=== PATIENT | male | born 1950 | race Caucasian/White ===

== ENCOUNTER 2017-06-29 18:23 | Inpatient (IN) | payer OTHER ==
[2017-06-29 23:04] LABS: ADD MAN DIFF? NO
[2017-06-29 23:06] LABS: BASOPHIL # 0.1 10^3/ul (0.0-0.1); BASOPHILS % 0.7 % (0.0-2.0); EOSINOPHILS # 0.2 10^3/ul (0.0-0.5); EOSINOPHILS % 1.1 % (0.0-7.0); HEMATOCRIT 32.9 % (42.0-52.0); HEMOGLOBIN 11.2 g/dl (14.0-18.0); LYMPHOCYTES # 1.5 10^3/ul (0.8-2.9); LYMPHOCYTES % 11.3 % (15.0-51.0); MEAN CORPUSCULAR HEMOGLOBIN 32.8 pg (29.0-33.0); MEAN CORPUSCULAR VOLUME 96.5 fl (82.0-101.0); MEAN PLATELET VOLUME 11.8 fl (7.4-10.4); MONOCYTE # 1.2 10^3/ul (0.3-0.9); MONOCYTES % 8.9 % (0.0-11.0); NEUTROPHIL # 10.5 10^3/ul (1.6-7.5); PLATELET COUNT 157 10^3/UL (140-415); RED BLOOD COUNT 3.41 10^6/ul (4.70-6.10); RED CELL DISTRIBUTION WIDTH 12.7 % (11.5-14.5)
[2017-06-29 23:06] LABS: WHITE BLOOD COUNT 13.7 10^3/ul (4.8-10.8)
[2017-06-29 23:09] LABS: INR 1.09; PROTIME 14.3 Sec (11.9-14.9); PT RATIO 1.1
[2017-06-29 23:10] LABS: PARTIAL THROMBOPLASTIN TIME 33.8 Sec (25.0-35.0)
[2017-06-29 23:13] LABS: ALANINE AMINOTRANSFERASE 45 IU/L (13-69); ALBUMIN 3.7 g/dl (3.3-4.9); ALBUMIN/GLOBULIN RATIO 0.94; ALKALINE PHOSPHATASE 249 IU/L (42-121); ANION GAP 21 (8-16); ASPARTATE AMINO TRANSFERASE 30 IU/L (15-46); BLOOD UREA NITROGEN 50 mg/dl (7-20); CALCIUM 9.2 mg/dl (8.4-10.2); CARBON DIOXIDE 32 mmol/L (21-31); CHLORIDE 88 mmol/L (97-110); CREATININE 7.77 mg/dl (0.61-1.24); POTASSIUM 5.7 mmol/L (3.5-5.1); SODIUM 135 mmol/L (135-144); TOTAL PROTEIN 7.6 g/dl (6.1-8.1)
[2017-06-29 23:15] LABS: GLUCOSE 540 mg/dl (70-220)
[2017-06-29 23:26] LABS: LACTIC ACID 1.4 mmol/L (0.5-2.0)
[2017-06-29] MEDS: INSULIN LISPRO 100 UNIT/ML VIAL SC (23:47)
[2017-06-30] MEDS ORDERED: INSULIN REGULAR, HUMAN 100 UNIT/1 ML 3ML VIAL IV (00:13)
[2017-06-30 00:29] LABS: ERYTHROCYTE SEDIMENTATION RATE 120 mm/Hr (0-20)
[2017-06-30] MEDS: ALBUTEROL 0.5% (NEB) 2.5 MG/0.5 ML AMP INH (00:34)
[2017-06-30] MEDS: PIPER-TAZO 2.25 GM (PMX) 50 ML IVPB ×2 (00:53→09:36)
[2017-06-30] MEDS: NA POLYST SULFON 15 GM/60 ML BTL PO (00:54)
[2017-06-30 01:06] LABS: LACTIC ACID 1.4 mmol/L (0.5-2.0)
[2017-06-30] MEDS ORDERED: DIPHENHYDRAMINE 25 MG CAP PO (01:30)
[2017-06-30] MEDS ORDERED: NACL 0.9% 3 ML SYG IV (01:30)
[2017-06-30] MEDS: VANCOMYCIN 1 GM (PMX) 250 ML IVPB (01:40)
[2017-06-30] MEDS: SOD CHLORIDE 0.9% 250 ML IV (02:00)
[2017-06-30] MEDS ORDERED: GLUCOSE GEL 15 GRAM TUBE PO ×2 (02:00)
[2017-06-30] MEDS ORDERED: GLUCOSE GEL 15 GRAM TUBE BUCCAL (02:00)
[2017-06-30] MEDS ORDERED: GLUCAGON 1 MG INJ IM (02:00)
[2017-06-30] MEDS ORDERED: ACCU-CHEK XX (02:00)
[2017-06-30] MEDS ORDERED: DEXTROSE 50% 50 ML SYRINGE IV ×2 (02:00)
[2017-06-30] MEDS ORDERED: INSULIN ASPART [NOVOLOG] 3 ML PEN SC (05:00)
[2017-06-30] MEDS ORDERED: VANCOMYCIN IV PER PHARMACY XX (05:30)
[2017-06-30] MEDS: ACCU-CHEK XX (05:30)
[2017-06-30] MEDS: VANCOMYCIN 1 GM in NS 250 ML IVPB (07:00)
[2017-06-30 07:10] LABS: ADD MAN DIFF? NO
[2017-06-30 07:53] LABS: ALANINE AMINOTRANSFERASE 49 IU/L (13-69); ALBUMIN 3.6 g/dl (3.3-4.9); ALBUMIN/GLOBULIN RATIO 0.92; ALKALINE PHOSPHATASE 189 IU/L (42-121); ANION GAP 19 (8-16); ASPARTATE AMINO TRANSFERASE 23 IU/L (15-46); BILIRUBIN,INDIRECT 0.1 mg/dl (0-1.1); BILIRUBIN,TOTAL 0.1 mg/dl (0.2-1.3); BLOOD UREA NITROGEN 54 mg/dl (7-20); CARBON DIOXIDE 29 mmol/L (21-31); CHLORIDE 95 mmol/L (97-110); CHOL/HDL RATIO 5.1 RATIO; CHOLESTEROL 135 mg/dl (100-200); CREATININE 8.32 mg/dl (0.61-1.24); GLUCOSE 157 mg/dl (70-220); HDL CHOLESTEROL 26 mg/dl (30-78); LDL CHOLESTEROL,CALCULATED 75 mg/dl; MAGNESIUM 2.5 mg/dl (1.7-2.5); POTASSIUM 4.1 mmol/L (3.5-5.1); SODIUM 139 mmol/L (135-144); TOTAL PROTEIN 7.5 g/dl (6.1-8.1); TRIGLYCERIDES 169 mg/dl (0-149)
[2017-06-30 07:56] LABS: LACTIC ACID 1.1 mmol/L (0.5-2.0)
[2017-06-30] MEDS: INSULIN ASPART [NOVOLOG] 3 ML PEN SC ×5 (08:00→20:34)
[2017-06-30 08:01] LABS: WHITE BLOOD COUNT 11.1 10^3/ul (4.8-10.8)
[2017-06-30 08:01] LABS: BASOPHIL # 0.1 10^3/ul (0.0-0.1); BASOPHILS % 0.6 % (0.0-2.0); EOSINOPHILS # 0.3 10^3/ul (0.0-0.5); EOSINOPHILS % 2.4 % (0.0-7.0); HEMATOCRIT 31.6 % (42.0-52.0); HEMOGLOBIN 10.7 g/dl (14.0-18.0); LYMPHOCYTES # 1.7 10^3/ul (0.8-2.9); LYMPHOCYTES % 15.2 % (15.0-51.0); MEAN CORPUSCULAR HEMOGLOBIN 32.4 pg (29.0-33.0); MEAN CORPUSCULAR HGB CONC 33.9 g/dl (32.0-37.0); MEAN CORPUSCULAR VOLUME 95.8 fl (82.0-101.0); MEAN PLATELET VOLUME 11.3 fl (7.4-10.4); MONOCYTE # 1.1 10^3/ul (0.3-0.9); MONOCYTES % 9.5 % (0.0-11.0); NEUTROPHIL # 7.8 10^3/ul (1.6-7.5); NEUTROPHILS % 70.9 % (39.0-77.0); PLATELET COUNT 162 10^3/UL (140-415); RED CELL DISTRIBUTION WIDTH 12.7 % (11.5-14.5)
[2017-06-30 08:58] LABS: THYROID STIMULATING HORMONE 0.924 MIU/L (0.465-4.680)
[2017-06-30] MEDS: MULTIVIT/CA CARB/B CMPLX/FA TAB PO (09:34)
[2017-06-30] MEDS: PANTOPRAZOLE (EC) 40 MG TAB PO (09:34)
[2017-06-30] MEDS: ASPIRIN (EC) 81 MG TAB PO (09:35)
[2017-06-30] MEDS: CALCIUM ACETATE 667 MG CAP PO ×3 (09:35→17:56)
[2017-06-30 10:04] LABS: HEMOGLOBIN A1C 8.8 % (0-5.9)
[2017-06-30] MEDS: INSULIN GLARGINE [LANtus] 3 ML PEN SC (20:33)
[2017-06-30] MEDS: ATORVASTATIN 10 MG TAB PO (20:35)
[2017-06-30] MEDS: SILVER SULFADIAZINE 1% 400 GM CR TOP (21:00)
[2017-07-01] MEDS: SODIUM HYPOCHLORITE 1/40% 1L IRRIG IRR ×3 (00:28→22:06)
[2017-07-01] MEDS: SILVER SULFADIAZINE 1% 400 GM CR TOP ×2 (00:29→21:00)
[2017-07-01] MEDS: morphine 2 MG INJ IV ×2 (01:44→10:30)
[2017-07-01] MEDS: ACCU-CHEK XX (01:52)
[2017-07-01 06:52] LABS: ANION GAP 17 (8-16); BLOOD UREA NITROGEN 51 mg/dl (7-20); CALCIUM 8.8 mg/dl (8.4-10.2); CARBON DIOXIDE 31 mmol/L (21-31); CHLORIDE 95 mmol/L (97-110); CREATININE 7.83 mg/dl (0.61-1.24); GLUCOSE 171 mg/dl (70-220); POTASSIUM 4.3 mmol/L (3.5-5.1); SODIUM 139 mmol/L (135-144)
[2017-07-01] MEDS: INSULIN ASPART [NOVOLOG] 3 ML PEN SC ×7 (08:00→21:00)
[2017-07-01] MEDS: PANTOPRAZOLE (EC) 40 MG TAB PO (08:22)
[2017-07-01] MEDS: CALCIUM ACETATE 667 MG CAP PO ×3 (08:22→17:08)
[2017-07-01] MEDS: ASPIRIN (EC) 81 MG TAB PO (08:26)
[2017-07-01] MEDS: MULTIVIT/CA CARB/B CMPLX/FA TAB PO (08:27)
[2017-07-01] MEDS: LOSARTAN 25 MG TAB PO (08:27)
[2017-07-01] MEDS ORDERED: AMIKACIN IV PER PHARMACY XX (11:00)
[2017-07-01] MEDS: AMIKACIN 600 MG in DEXTROSE 5% 100 ML IVPB (12:40)
[2017-07-01] MEDS ORDERED: INSULIN GLARGINE [LANtus] 3 ML PEN SC (21:00)
[2017-07-01] MEDS: INSULIN GLARGINE [LANtus] 3 ML PEN SC (21:47)
[2017-07-01] MEDS: ATORVASTATIN 10 MG TAB PO (21:48)
[2017-07-02] MEDS: ACCU-CHEK XX (02:00)
[2017-07-02] MEDS: morphine 2 MG INJ IV (06:56)
[2017-07-02] MEDS: ASPIRIN (EC) 81 MG TAB PO (08:45)
[2017-07-02] MEDS: PANTOPRAZOLE (EC) 40 MG TAB PO (08:45)
[2017-07-02] MEDS: MULTIVIT/CA CARB/B CMPLX/FA TAB PO (08:46)
[2017-07-02] MEDS: CALCIUM ACETATE 667 MG CAP PO ×3 (08:46→17:09)
[2017-07-02] MEDS: INFLUENZA VIRUS VACCINE 0.5 ML (DISPENSING) IM* (08:50)
[2017-07-02] MEDS: INSULIN ASPART [NOVOLOG] 3 ML PEN SC ×7 (08:54→20:50)
[2017-07-02] MEDS: LOSARTAN 25 MG TAB PO (09:00)
[2017-07-02] MEDS: SODIUM HYPOCHLORITE 1/40% 1L IRRIG IRR ×2 (14:00→20:54)
[2017-07-02] MEDS: SILVER SULFADIAZINE 1% 400 GM CR TOP ×2 (14:00→20:54)
[2017-07-02] MEDS ORDERED: VANCOMYCIN IV PER PHARMACY XX (14:30)
[2017-07-02] MEDS ORDERED: VANCOMYCIN 1 GM in NS 250 ML IVPB (17:00)
[2017-07-02] MEDS: VANCOMYCIN 1 GM in NS 250 ML IVPB (17:09)
[2017-07-02] MEDS ORDERED: CEFAZOLIN 2 GM/50 ML (PMX) 50 ML IVPB (19:00)
[2017-07-02] MEDS: POLYETHYLENE GLYCOL 17 GM PACKET PO (20:47)
[2017-07-02] MEDS: INSULIN GLARGINE [LANtus] 3 ML PEN SC (20:51)
[2017-07-02] MEDS: DOCUSATE SODIUM 100 MG CAP PO (20:53)
[2017-07-02] MEDS: ATORVASTATIN 10 MG TAB PO (20:53)
[2017-07-02] MEDS: KETOROLAC 15 MG INJ IV (22:01)
[2017-07-02] MEDS: AMIKACIN 400 MG in DEXTROSE 5% 100 ML IVPB (22:02)
[2017-07-03] MEDS: ACCU-CHEK XX (02:00)
[2017-07-03 06:03] LABS: ADD MAN DIFF? NO
[2017-07-03 06:07] LABS: BASOPHIL # 0.1 10^3/ul (0.0-0.1); BASOPHILS % 0.6 % (0.0-2.0); EOSINOPHILS # 0.3 10^3/ul (0.0-0.5); EOSINOPHILS % 2.2 % (0.0-7.0); HEMATOCRIT 32.3 % (42.0-52.0); HEMOGLOBIN 10.8 g/dl (14.0-18.0); LYMPHOCYTES # 1.8 10^3/ul (0.8-2.9); LYMPHOCYTES % 13.8 % (15.0-51.0); MEAN CORPUSCULAR HEMOGLOBIN 32.2 pg (29.0-33.0); MEAN CORPUSCULAR HGB CONC 33.4 g/dl (32.0-37.0); MEAN CORPUSCULAR VOLUME 96.4 fl (82.0-101.0); MEAN PLATELET VOLUME 11.1 fl (7.4-10.4); MONOCYTE # 0.9 10^3/ul (0.3-0.9); MONOCYTES % 6.8 % (0.0-11.0); NEUTROPHIL # 9.8 10^3/ul (1.6-7.5); NEUTROPHILS % 75.1 % (39.0-77.0); PLATELET COUNT 185 10^3/UL (140-415); RED BLOOD COUNT 3.35 10^6/ul (4.70-6.10); RED CELL DISTRIBUTION WIDTH 12.3 % (11.5-14.5)
[2017-07-03 06:24] LABS: INR 1.16; PT RATIO 1.2
[2017-07-03 06:25] LABS: PARTIAL THROMBOPLASTIN TIME 40.7 Sec (25.0-35.0)
[2017-07-03 07:00] LABS: ALANINE AMINOTRANSFERASE 35 IU/L (13-69); ALBUMIN 3.6 g/dl (3.3-4.9); ALBUMIN/GLOBULIN RATIO 0.97; ALKALINE PHOSPHATASE 184 IU/L (42-121); ANION GAP 22 (8-16); ASPARTATE AMINO TRANSFERASE 20 IU/L (15-46); BILIRUBIN,INDIRECT 0.1 mg/dl (0-1.1); BILIRUBIN,TOTAL 0.1 mg/dl (0.2-1.3); BLOOD UREA NITROGEN 60 mg/dl (7-20); CALCIUM 8.3 mg/dl (8.4-10.2); CARBON DIOXIDE 27 mmol/L (21-31); CHLORIDE 94 mmol/L (97-110); CREATININE 8.92 mg/dl (0.61-1.24); GLUCOSE 137 mg/dl (70-220); POTASSIUM 4.5 mmol/L (3.5-5.1); SODIUM 138 mmol/L (135-144); TOTAL PROTEIN 7.3 g/dl (6.1-8.1)
[2017-07-03] MEDS: INSULIN ASPART [NOVOLOG] 3 ML PEN SC ×7 (07:52→20:04)
[2017-07-03] MEDS: ASPIRIN (EC) 81 MG TAB PO (08:34)
[2017-07-03] MEDS: POLYETHYLENE GLYCOL 17 GM PACKET PO (08:34)
[2017-07-03] MEDS: MULTIVIT/CA CARB/B CMPLX/FA TAB PO (08:36)
[2017-07-03] MEDS: PANTOPRAZOLE (EC) 40 MG TAB PO (08:36)
[2017-07-03] MEDS: CALCIUM ACETATE 667 MG CAP PO ×3 (08:36→17:21)
[2017-07-03] MEDS: DOCUSATE SODIUM 100 MG CAP PO ×2 (08:36→20:03)
[2017-07-03] MEDS: LOSARTAN 25 MG TAB PO (08:37)
[2017-07-03] MEDS: SODIUM HYPOCHLORITE 1/40% 1L IRRIG IRR ×2 (08:40→20:02)
[2017-07-03] MEDS: SILVER SULFADIAZINE 1% 400 GM CR TOP ×2 (08:41→20:04)
[2017-07-03] MEDS: morphine 2 MG INJ IV (11:02)
[2017-07-03] MEDS ORDERED: GENTAMICIN IV PER PHARMACY XX (13:00)
[2017-07-03] MEDS: LEVOFLOXACIN 250 MG TAB PO (13:42)
[2017-07-03] MEDS: GENTAMICIN 160 MG in DEXTROSE 5% 100 ML IVPB (15:02)
[2017-07-03] MEDS: ATORVASTATIN 10 MG TAB PO (20:04)
[2017-07-03] MEDS: INSULIN GLARGINE [LANtus] 3 ML PEN SC (20:07)
[2017-07-04] MEDS: ACCU-CHEK XX (02:04)
[2017-07-04] MEDS: PANTOPRAZOLE (EC) 40 MG TAB PO (07:30)
[2017-07-04] MEDS: INSULIN ASPART [NOVOLOG] 3 ML PEN SC ×7 (07:35→21:00)
[2017-07-04] MEDS: CALCIUM ACETATE 667 MG CAP PO ×3 (07:35→17:13)
[2017-07-04] MEDS: DOCUSATE SODIUM 100 MG CAP PO ×2 (08:48→21:03)
[2017-07-04] MEDS: LOSARTAN 25 MG TAB PO (08:48)
[2017-07-04] MEDS: SILVER SULFADIAZINE 1% 400 GM CR TOP ×2 (08:49→21:00)
[2017-07-04] MEDS: ASPIRIN (EC) 81 MG TAB PO (08:49)
[2017-07-04] MEDS: MULTIVIT/CA CARB/B CMPLX/FA TAB PO (08:49)
[2017-07-04] MEDS: SODIUM HYPOCHLORITE 1/40% 1L IRRIG IRR ×2 (08:49→21:00)
[2017-07-04] MEDS: POLYETHYLENE GLYCOL 17 GM PACKET PO (08:49)
[2017-07-04] MEDS: morphine 2 MG INJ IV (12:48)
[2017-07-04] MEDS: GENTAMICIN 80 MG/NS (PMX) 50 ML IVPB (15:54)
[2017-07-04] MEDS: EPOETIN 10000 UNITS/1 ML INJ (ESRD) SC (17:24)
[2017-07-04] MEDS: INSULIN GLARGINE [LANtus] 3 ML PEN SC (21:00)
[2017-07-04] MEDS: ATORVASTATIN 10 MG TAB PO (21:03)
[2017-07-05] MEDS: ACCU-CHEK XX (01:55)
[2017-07-05 05:34] LABS: ADD MAN DIFF? NO
[2017-07-05 05:47] LABS: BASOPHIL # 0.1 10^3/ul (0.0-0.1); BASOPHILS % 0.6 % (0.0-2.0); EOSINOPHILS # 0.2 10^3/ul (0.0-0.5); EOSINOPHILS % 1.5 % (0.0-7.0); HEMATOCRIT 29.3 % (42.0-52.0); HEMOGLOBIN 9.7 g/dl (14.0-18.0); LYMPHOCYTES # 1.4 10^3/ul (0.8-2.9); LYMPHOCYTES % 12.4 % (15.0-51.0); MEAN CORPUSCULAR HEMOGLOBIN 31.9 pg (29.0-33.0); MEAN CORPUSCULAR HGB CONC 33.1 g/dl (32.0-37.0); MEAN CORPUSCULAR VOLUME 96.4 fl (82.0-101.0); MEAN PLATELET VOLUME 11.3 fl (7.4-10.4); MONOCYTES % 8.2 % (0.0-11.0); NEUTROPHIL # 8.9 10^3/ul (1.6-7.5); NEUTROPHILS % 76.4 % (39.0-77.0); PLATELET COUNT 218 10^3/UL (140-415); RED BLOOD COUNT 3.04 10^6/ul (4.70-6.10); RED CELL DISTRIBUTION WIDTH 12.3 % (11.5-14.5)
[2017-07-05 05:47] LABS: WHITE BLOOD COUNT 11.6 10^3/ul (4.8-10.8)
[2017-07-05 06:08] LABS: ANION GAP 20 (8-16); BLOOD UREA NITROGEN 62 mg/dl (7-20); CALCIUM 8.7 mg/dl (8.4-10.2); CARBON DIOXIDE 29 mmol/L (21-31); CHLORIDE 97 mmol/L (97-110); GLUCOSE 154 mg/dl (70-220); MAGNESIUM 2.5 mg/dl (1.7-2.5); PHOSPHORUS 7.5 mg/dl (2.5-4.9); POTASSIUM 5.1 mmol/L (3.5-5.1); SODIUM 141 mmol/L (135-144)
[2017-07-05 06:12] LABS: VANCOMYCIN,RANDOM 17.3 ug/ml
[2017-07-05] MEDS: INSULIN ASPART [NOVOLOG] 3 ML PEN SC ×7 (08:00→21:00)
[2017-07-05] MEDS: SODIUM HYPOCHLORITE 1/40% 1L IRRIG IRR ×2 (08:17→20:51)
[2017-07-05] MEDS: SILVER SULFADIAZINE 1% 400 GM CR TOP ×2 (08:17→20:52)
[2017-07-05] MEDS: POLYETHYLENE GLYCOL 17 GM PACKET PO (08:19)
[2017-07-05] MEDS: ASPIRIN (EC) 81 MG TAB PO (08:19)
[2017-07-05] MEDS: MULTIVIT/CA CARB/B CMPLX/FA TAB PO (08:19)
[2017-07-05] MEDS: DOCUSATE SODIUM 100 MG CAP PO ×2 (08:19→21:06)
[2017-07-05] MEDS: CALCIUM ACETATE 667 MG CAP PO ×3 (08:19→17:20)
[2017-07-05] MEDS: PANTOPRAZOLE (EC) 40 MG TAB PO (08:19)
[2017-07-05] MEDS: LOSARTAN 25 MG TAB PO (08:20)
[2017-07-05] MEDS: LEVOFLOXACIN 250 MG TAB PO (12:05)
[2017-07-05] MEDS: SEVELAMER 800 MG TAB PO ×2 (12:05→17:20)
[2017-07-05] MEDS: morphine 2 MG INJ IV (12:46)
[2017-07-05] MEDS: VANCOMYCIN 750 MG in DEXTROSE 5% 150 ML IVPB (21:05)
[2017-07-05] MEDS: ATORVASTATIN 10 MG TAB PO (21:06)
[2017-07-05] MEDS: INSULIN GLARGINE [LANtus] 3 ML PEN SC (21:10)
[2017-07-06] MEDS: ACCU-CHEK XX (02:00)
[2017-07-06] MEDS: PANTOPRAZOLE (EC) 40 MG TAB PO (06:15)
[2017-07-06 07:24] LABS: ADD MAN DIFF? NO
[2017-07-06 07:28] LABS: WHITE BLOOD COUNT 12.4 10^3/ul (4.8-10.8)
[2017-07-06 07:28] LABS: BASOPHILS % 0.3 % (0.0-2.0); EOSINOPHILS # 0.2 10^3/ul (0.0-0.5); EOSINOPHILS % 1.5 % (0.0-7.0); HEMATOCRIT 27.2 % (42.0-52.0); HEMOGLOBIN 9.2 g/dl (14.0-18.0); LYMPHOCYTES # 1.8 10^3/ul (0.8-2.9); LYMPHOCYTES % 14.1 % (15.0-51.0); MEAN CORPUSCULAR HEMOGLOBIN 32.5 pg (29.0-33.0); MEAN CORPUSCULAR HGB CONC 33.8 g/dl (32.0-37.0); MEAN CORPUSCULAR VOLUME 96.1 fl (82.0-101.0); MEAN PLATELET VOLUME 11.1 fl (7.4-10.4); MONOCYTE # 0.8 10^3/ul (0.3-0.9); MONOCYTES % 6.5 % (0.0-11.0); NEUTROPHIL # 9.5 10^3/ul (1.6-7.5); NEUTROPHILS % 76.6 % (39.0-77.0); PLATELET COUNT 224 10^3/UL (140-415); RED BLOOD COUNT 2.83 10^6/ul (4.70-6.10); RED CELL DISTRIBUTION WIDTH 12.3 % (11.5-14.5)
[2017-07-06 07:53] LABS: ANION GAP 23 (8-16); BLOOD UREA NITROGEN 85 mg/dl (7-20); CALCIUM 8.1 mg/dl (8.4-10.2); CARBON DIOXIDE 24 mmol/L (21-31); CHLORIDE 95 mmol/L (97-110); CREATININE 11.73 mg/dl (0.61-1.24); GLUCOSE 156 mg/dl (70-220); MAGNESIUM 2.5 mg/dl (1.7-2.5); PHOSPHORUS 7.5 mg/dl (2.5-4.9); POTASSIUM 5.4 mmol/L (3.5-5.1); SODIUM 137 mmol/L (135-144)
[2017-07-06] MEDS: CALCIUM ACETATE 667 MG CAP PO ×3 (08:41→17:38)
[2017-07-06] MEDS: LOSARTAN 25 MG TAB PO (08:42)
[2017-07-06] MEDS: SODIUM HYPOCHLORITE 1/40% 1L IRRIG IRR ×2 (08:42→21:00)
[2017-07-06] MEDS: POLYETHYLENE GLYCOL 17 GM PACKET PO (08:44)
[2017-07-06] MEDS: SILVER SULFADIAZINE 1% 400 GM CR TOP ×2 (08:44→21:00)
[2017-07-06] MEDS: MULTIVIT/CA CARB/B CMPLX/FA TAB PO (08:44)
[2017-07-06] MEDS: ASPIRIN (EC) 81 MG TAB PO (08:44)
[2017-07-06] MEDS: INSULIN ASPART [NOVOLOG] 3 ML PEN SC ×7 (08:45→21:00)
[2017-07-06] MEDS: DOCUSATE SODIUM 100 MG CAP PO ×2 (08:45→21:31)
[2017-07-06] MEDS: SEVELAMER 800 MG TAB PO ×4 (08:51→17:17)
[2017-07-06] MEDS: GENTAMICIN 80 MG/NS (PMX) 50 ML IVPB (11:32)
[2017-07-06] MEDS: EPOETIN 10000 UNITS/1 ML INJ (ESRD) SC (17:38)
[2017-07-06] MEDS: ATORVASTATIN 10 MG TAB PO (21:30)
[2017-07-06] MEDS: INSULIN GLARGINE [LANtus] 3 ML PEN SC (21:32)
[2017-07-06 22:42] LABS: HEMATOCRIT 26.6 % (42.0-52.0)
[2017-07-07] MEDS: ACCU-CHEK XX (02:00)
[2017-07-07 05:51] LABS: ADD MAN DIFF? NO
[2017-07-07 05:58] LABS: BASOPHIL # 0.1 10^3/ul (0.0-0.1); BASOPHILS % 0.4 % (0.0-2.0); EOSINOPHILS # 0.2 10^3/ul (0.0-0.5); EOSINOPHILS % 1.1 % (0.0-7.0); HEMATOCRIT 25.3 % (42.0-52.0); HEMOGLOBIN 8.5 g/dl (14.0-18.0); LYMPHOCYTES # 1.8 10^3/ul (0.8-2.9); LYMPHOCYTES % 12.9 % (15.0-51.0); MEAN CORPUSCULAR HEMOGLOBIN 32.3 pg (29.0-33.0); MEAN CORPUSCULAR HGB CONC 33.6 g/dl (32.0-37.0); MEAN CORPUSCULAR VOLUME 96.2 fl (82.0-101.0); MEAN PLATELET VOLUME 10.9 fl (7.4-10.4); NEUTROPHIL # 10.6 10^3/ul (1.6-7.5); NEUTROPHILS % 77.7 % (39.0-77.0); PLATELET COUNT 257 10^3/UL (140-415); RED BLOOD COUNT 2.63 10^6/ul (4.70-6.10)
[2017-07-07 05:58] LABS: WHITE BLOOD COUNT 13.6 10^3/ul (4.8-10.8)
[2017-07-07 06:25] LABS: IRON 20 ug/dl (35-150)
[2017-07-07 06:35] LABS: % IRON SATURATION 9 % SAT (22-52); ANION GAP 21 (8-16); BLOOD UREA NITROGEN 76 mg/dl (7-20); CALCIUM 8.6 mg/dl (8.4-10.2); CARBON DIOXIDE 27 mmol/L (21-31); CHLORIDE 96 mmol/L (97-110); GLUCOSE 190 mg/dl (70-220); MAGNESIUM 2.5 mg/dl (1.7-2.5); POTASSIUM 5.7 mmol/L (3.5-5.1); SODIUM 138 mmol/L (135-144); TOTAL IRON BINDING CAPACITY 211 ug/dl (241-421)
[2017-07-07] MEDS: morphine 2 MG INJ IV ×2 (07:41→12:13)
[2017-07-07] MEDS: PANTOPRAZOLE (EC) 40 MG TAB PO (08:19)
[2017-07-07] MEDS: ASPIRIN (EC) 81 MG TAB PO (08:19)
[2017-07-07] MEDS: MULTIVIT/CA CARB/B CMPLX/FA TAB PO (08:19)
[2017-07-07] MEDS: DOCUSATE SODIUM 100 MG CAP PO ×2 (08:19→20:12)
[2017-07-07] MEDS: SEVELAMER 800 MG TAB PO ×3 (08:20→18:03)
[2017-07-07] MEDS: SODIUM HYPOCHLORITE 1/40% 1L IRRIG IRR ×3 (08:20→21:00)
[2017-07-07] MEDS: CALCIUM ACETATE 667 MG CAP PO ×3 (08:20→18:03)
[2017-07-07] MEDS: SILVER SULFADIAZINE 1% 400 GM CR TOP ×3 (08:21→21:00)
[2017-07-07] MEDS: INSULIN ASPART [NOVOLOG] 3 ML PEN SC ×7 (08:23→21:00)
[2017-07-07] MEDS: POLYETHYLENE GLYCOL 17 GM PACKET PO ×2 (08:24→18:16)
[2017-07-07] MEDS: LOSARTAN 25 MG TAB PO (08:24)
[2017-07-07] MEDS: SOD FERRIC GLUC COMPLX 125 MG in SOD CHLORIDE 0.9% 100 ML IVPB (12:18)
[2017-07-07] MEDS: LEVOFLOXACIN 250 MG TAB PO (12:28)
[2017-07-07] MEDS: GENTAMICIN 80 MG/NS (PMX) 50 ML IVPB (14:41)
[2017-07-07] MEDS: ATORVASTATIN 10 MG TAB PO (20:12)
[2017-07-07] MEDS: INSULIN GLARGINE [LANtus] 3 ML PEN SC (20:14)
[2017-07-08] MEDS: ACCU-CHEK XX (02:00)
[2017-07-08] MEDS: ONDANSETRON 4 MG INJ IV ×2 (02:20→21:49)
[2017-07-08 06:56] LABS: ANION GAP 19 (8-16); BLOOD UREA NITROGEN 59 mg/dl (7-20); CALCIUM 8.6 mg/dl (8.4-10.2); CARBON DIOXIDE 27 mmol/L (21-31); CHLORIDE 101 mmol/L (97-110); CREATININE 9.17 mg/dl (0.61-1.24); GLUCOSE 142 mg/dl (70-220); MAGNESIUM 2.5 mg/dl (1.7-2.5); PHOSPHORUS 6.9 mg/dl (2.5-4.9); POTASSIUM 5.6 mmol/L (3.5-5.1); SODIUM 141 mmol/L (135-144)
[2017-07-08] MEDS: INSULIN ASPART [NOVOLOG] 3 ML PEN SC ×7 (08:00→21:00)
[2017-07-08] MEDS: MULTIVIT/CA CARB/B CMPLX/FA TAB PO (08:45)
[2017-07-08] MEDS: SEVELAMER 800 MG TAB PO ×3 (08:45→17:58)
[2017-07-08] MEDS: ASPIRIN (EC) 81 MG TAB PO (08:45)
[2017-07-08] MEDS: PANTOPRAZOLE (EC) 40 MG TAB PO (08:45)
[2017-07-08] MEDS: CALCIUM ACETATE 667 MG CAP PO ×3 (08:45→17:59)
[2017-07-08] MEDS: POLYETHYLENE GLYCOL 17 GM PACKET PO (08:46)
[2017-07-08] MEDS: LOSARTAN 25 MG TAB PO (08:49)
[2017-07-08] MEDS: SODIUM HYPOCHLORITE 1/40% 1L IRRIG IRR ×2 (08:55→21:52)
[2017-07-08] MEDS: DOCUSATE SODIUM 100 MG CAP PO ×2 (08:55→21:51)
[2017-07-08] MEDS: SILVER SULFADIAZINE 1% 400 GM CR TOP ×2 (09:00→21:54)
[2017-07-08] MEDS: SOD FERRIC GLUC COMPLX 125 MG in SOD CHLORIDE 0.9% 100 ML IVPB (10:39)
[2017-07-08] MEDS: morphine 2 MG INJ IV ×2 (10:40→15:10)
[2017-07-08 14:16] LABS: ADD MAN DIFF? NO
[2017-07-08 14:20] LABS: WHITE BLOOD COUNT 13.3 10^3/ul (4.8-10.8)
[2017-07-08 14:20] LABS: BASOPHIL # 0.1 10^3/ul (0.0-0.1); BASOPHILS % 0.4 % (0.0-2.0); EOSINOPHILS # 0.3 10^3/ul (0.0-0.5); EOSINOPHILS % 2.3 % (0.0-7.0); HEMATOCRIT 22.4 % (42.0-52.0); HEMOGLOBIN 7.5 g/dl (14.0-18.0); LYMPHOCYTES % 7.5 % (15.0-51.0); MEAN CORPUSCULAR HEMOGLOBIN 32.8 pg (29.0-33.0); MEAN CORPUSCULAR HGB CONC 33.5 g/dl (32.0-37.0); MEAN CORPUSCULAR VOLUME 97.8 fl (82.0-101.0); MEAN PLATELET VOLUME 10.4 fl (7.4-10.4); MONOCYTES % 7.1 % (0.0-11.0); NEUTROPHIL # 10.9 10^3/ul (1.6-7.5); NEUTROPHILS % 81.8 % (39.0-77.0); PLATELET COUNT 258 10^3/UL (140-415); RED BLOOD COUNT 2.29 10^6/ul (4.70-6.10); RED CELL DISTRIBUTION WIDTH 12.3 % (11.5-14.5)
[2017-07-08 14:47] LABS: GENTAMICIN,RANDOM 2.9 ug/ml
[2017-07-08] MEDS: EPOETIN 10000 UNITS/1 ML INJ (ESRD) SC (18:00)
[2017-07-08] MEDS: SOD CHLORIDE 0.9% 250 ML IV* (19:26)
[2017-07-08] MEDS ORDERED: DOCUSATE SODIUM 100 MG CAP PO (21:00)
[2017-07-08] MEDS: INSULIN GLARGINE [LANtus] 3 ML PEN SC (21:48)
[2017-07-08] MEDS: ATORVASTATIN 10 MG TAB PO (21:49)
[2017-07-09] MEDS: morphine 2 MG INJ IV ×2 (02:12→13:49)
[2017-07-09] MEDS: SENNA TAB PO ×3 (02:17→22:15)
[2017-07-09] MEDS: MAGNESIUM HYDROXIDE 30ML CUP PO (02:20)
[2017-07-09] MEDS: ACCU-CHEK XX (02:26)
[2017-07-09] MEDS: ACETAMINOPHEN 325 MG TAB PO (03:31)
[2017-07-09 06:07] LABS: ADD MAN DIFF? NO
[2017-07-09 06:10] LABS: IMMEDIATE SPIN CROSSMATCH 1 1
[2017-07-09 06:39] LABS: WHITE BLOOD COUNT 13.7 10^3/ul (4.8-10.8)
[2017-07-09 06:39] LABS: BASOPHIL # 0.1 10^3/ul (0.0-0.1); BASOPHILS % 0.7 % (0.0-2.0); EOSINOPHILS # 0.4 10^3/ul (0.0-0.5); EOSINOPHILS % 2.6 % (0.0-7.0); HEMATOCRIT 23.6 % (42.0-52.0); HEMOGLOBIN 7.7 g/dl (14.0-18.0); LYMPHOCYTES # 0.8 10^3/ul (0.8-2.9); LYMPHOCYTES % 5.7 % (15.0-51.0); MEAN CORPUSCULAR HEMOGLOBIN 32.2 pg (29.0-33.0); MEAN CORPUSCULAR HGB CONC 32.6 g/dl (32.0-37.0); MEAN CORPUSCULAR VOLUME 98.7 fl (82.0-101.0); MEAN PLATELET VOLUME 10.9 fl (7.4-10.4); MONOCYTE # 1.1 10^3/ul (0.3-0.9); NEUTROPHIL # 11.2 10^3/ul (1.6-7.5); NUCLEATED RED BLOOD CELLS% 0.1 /100WBC (0.0-0.0); PLATELET COUNT 316 10^3/UL (140-415); RED BLOOD COUNT 2.39 10^6/ul (4.70-6.10); RED CELL DISTRIBUTION WIDTH 12.3 % (11.5-14.5)
[2017-07-09 07:17] LABS: VANCOMYCIN,RANDOM 11.6 ug/ml
[2017-07-09 07:26] LABS: ANION GAP 18 (8-16); BLOOD UREA NITROGEN 53 mg/dl (7-20); CALCIUM 8.5 mg/dl (8.4-10.2); CARBON DIOXIDE 30 mmol/L (21-31); CHLORIDE 94 mmol/L (97-110); CREATININE 8.38 mg/dl (0.61-1.24); GLUCOSE 164 mg/dl (70-220); MAGNESIUM 2.4 mg/dl (1.7-2.5); PHOSPHORUS 5.4 mg/dl (2.5-4.9); POTASSIUM 4.7 mmol/L (3.5-5.1); SODIUM 137 mmol/L (135-144)
[2017-07-09] MEDS: SODIUM HYPOCHLORITE 1/40% 1L IRRIG IRR (07:50)
[2017-07-09] MEDS: INSULIN ASPART [NOVOLOG] 3 ML PEN SC ×7 (07:50→21:00)
[2017-07-09] MEDS: CALCIUM ACETATE 667 MG CAP PO ×3 (08:30→17:29)
[2017-07-09] MEDS: LOSARTAN 25 MG TAB PO (08:30)
[2017-07-09] MEDS: PANTOPRAZOLE (EC) 40 MG TAB PO (08:30)
[2017-07-09] MEDS: DOCUSATE SODIUM 100 MG CAP PO ×2 (08:30→22:15)
[2017-07-09] MEDS: SEVELAMER 800 MG TAB PO ×3 (08:31→17:29)
[2017-07-09] MEDS: MULTIVIT/CA CARB/B CMPLX/FA TAB PO (08:31)
[2017-07-09] MEDS: ASPIRIN (EC) 81 MG TAB PO (08:31)
[2017-07-09] MEDS: SILVER SULFADIAZINE 1% 400 GM CR TOP (08:32)
[2017-07-09] MEDS: SOD FERRIC GLUC COMPLX 125 MG in SOD CHLORIDE 0.9% 100 ML IVPB (10:52)
[2017-07-09] MEDS: LEVOFLOXACIN 250 MG TAB PO (12:10)
[2017-07-09] MEDS: VANCOMYCIN 1 GM 250 ML IVPB (17:29)
[2017-07-09] MEDS: ATORVASTATIN 10 MG TAB PO (22:15)
[2017-07-09] MEDS: INSULIN GLARGINE [LANtus] 3 ML PEN SC (22:19)
[2017-07-10] MEDS: ACCU-CHEK XX (02:00)
[2017-07-10] MEDS: MAGNESIUM HYDROXIDE 30ML CUP PO (02:09)
[2017-07-10] MEDS: SODIUM HYPOCHLORITE 1/40% 1L IRRIG IRR ×3 (02:13→21:36)
[2017-07-10 06:07] LABS: ADD MAN DIFF? NO
[2017-07-10 06:17] LABS: WHITE BLOOD COUNT 13.7 10^3/ul (4.8-10.8)
[2017-07-10 06:17] LABS: BASOPHIL # 0.1 10^3/ul (0.0-0.1); BASOPHILS % 0.4 % (0.0-2.0); EOSINOPHILS # 0.2 10^3/ul (0.0-0.5); EOSINOPHILS % 1.7 % (0.0-7.0); HEMATOCRIT 24.8 % (42.0-52.0); HEMOGLOBIN 8.1 g/dl (14.0-18.0); LYMPHOCYTES % 7.1 % (15.0-51.0); MEAN CORPUSCULAR HEMOGLOBIN 32.1 pg (29.0-33.0); MEAN CORPUSCULAR HGB CONC 32.7 g/dl (32.0-37.0); MEAN CORPUSCULAR VOLUME 98.4 fl (82.0-101.0); MONOCYTE # 1.4 10^3/ul (0.3-0.9); MONOCYTES % 10.3 % (0.0-11.0); NEUTROPHIL # 10.9 10^3/ul (1.6-7.5); NEUTROPHILS % 79.5 % (39.0-77.0); NUCLEATED RED BLOOD CELLS% 0.2 /100WBC (0.0-0.0); PLATELET COUNT 296 10^3/UL (140-415); RED BLOOD COUNT 2.52 10^6/ul (4.70-6.10); RED CELL DISTRIBUTION WIDTH 13.4 % (11.5-14.5)
[2017-07-10 06:56] LABS: ANION GAP 18 (8-16); BLOOD UREA NITROGEN 70 mg/dl (7-20); CALCIUM 8.4 mg/dl (8.4-10.2); CARBON DIOXIDE 25 mmol/L (21-31); CHLORIDE 96 mmol/L (97-110); CREATININE 10.45 mg/dl (0.61-1.24); GLUCOSE 78 mg/dl (70-220); MAGNESIUM 2.7 mg/dl (1.7-2.5); PHOSPHORUS 5.5 mg/dl (2.5-4.9); POTASSIUM 5.4 mmol/L (3.5-5.1); SODIUM 134 mmol/L (135-144)
[2017-07-10] MEDS: INSULIN ASPART [NOVOLOG] 3 ML PEN SC ×7 (08:00→21:00)
[2017-07-10] MEDS: PANTOPRAZOLE (EC) 40 MG TAB PO (08:44)
[2017-07-10] MEDS: SEVELAMER 800 MG TAB PO ×3 (08:47→16:46)
[2017-07-10] MEDS: CALCIUM ACETATE 667 MG CAP PO ×3 (08:47→16:46)
[2017-07-10] MEDS: DOCUSATE SODIUM 100 MG CAP PO ×2 (08:49→21:37)
[2017-07-10] MEDS: LOSARTAN 25 MG TAB PO (08:51)
[2017-07-10] MEDS: ASPIRIN (EC) 81 MG TAB PO (08:51)
[2017-07-10] MEDS: SENNA TAB PO ×2 (08:51→21:37)
[2017-07-10] MEDS: SILVER SULFADIAZINE 1% 400 GM CR TOP (08:51)
[2017-07-10] MEDS: MULTIVIT/CA CARB/B CMPLX/FA TAB PO (08:51)
[2017-07-10] MEDS: SOD FERRIC GLUC COMPLX 125 MG in SOD CHLORIDE 0.9% 100 ML IVPB (10:02)
[2017-07-10] MEDS: ACETAMINOPHEN 325 MG TAB PO (15:23)
[2017-07-10] MEDS: ATORVASTATIN 10 MG TAB PO (21:37)
[2017-07-10] MEDS: INSULIN GLARGINE [LANtus] 3 ML PEN SC (21:47)
[2017-07-10] MEDS: morphine 2 MG INJ IV (22:01)
[2017-07-11] MEDS: ACCU-CHEK XX (02:00)
[2017-07-11 05:29] LABS: ADD MAN DIFF? NO
[2017-07-11 05:38] LABS: WHITE BLOOD COUNT 10.6 10^3/ul (4.8-10.8)
[2017-07-11 05:38] LABS: BASOPHIL # 0.1 10^3/ul (0.0-0.1); BASOPHILS % 0.5 % (0.0-2.0); EOSINOPHILS # 0.3 10^3/ul (0.0-0.5); EOSINOPHILS % 3.1 % (0.0-7.0); HEMATOCRIT 23.6 % (42.0-52.0); HEMOGLOBIN 7.5 g/dl (14.0-18.0); LYMPHOCYTES # 1.4 10^3/ul (0.8-2.9); LYMPHOCYTES % 13.5 % (15.0-51.0); MEAN CORPUSCULAR HEMOGLOBIN 31.5 pg (29.0-33.0); MEAN CORPUSCULAR HGB CONC 31.8 g/dl (32.0-37.0); MEAN CORPUSCULAR VOLUME 99.2 fl (82.0-101.0); MEAN PLATELET VOLUME 10.8 fl (7.4-10.4); MONOCYTE # 1.3 10^3/ul (0.3-0.9); MONOCYTES % 12.7 % (0.0-11.0); NEUTROPHIL # 7.2 10^3/ul (1.6-7.5); NEUTROPHILS % 68.5 % (39.0-77.0); PLATELET COUNT 283 10^3/UL (140-415); RED BLOOD COUNT 2.38 10^6/ul (4.70-6.10); RED CELL DISTRIBUTION WIDTH 13.4 % (11.5-14.5)
[2017-07-11] MEDS: PANTOPRAZOLE (EC) 40 MG TAB PO (05:53)
[2017-07-11 06:27] LABS: ANION GAP 22 (8-16); BLOOD UREA NITROGEN 88 mg/dl (7-20); CALCIUM 8.1 mg/dl (8.4-10.2); CARBON DIOXIDE 23 mmol/L (21-31); CHLORIDE 94 mmol/L (97-110); CREATININE 12.97 mg/dl (0.61-1.24); GLUCOSE 91 mg/dl (70-220); MAGNESIUM 3.2 mg/dl (1.7-2.5); PHOSPHORUS 7.7 mg/dl (2.5-4.9); POTASSIUM 5.5 mmol/L (3.5-5.1); SODIUM 133 mmol/L (135-144)
[2017-07-11] MEDS: INSULIN ASPART [NOVOLOG] 3 ML PEN SC ×7 (08:00→20:30)
[2017-07-11] MEDS: CALCIUM ACETATE 667 MG CAP PO ×3 (08:45→17:13)
[2017-07-11] MEDS: SENNA TAB PO ×2 (08:45→20:32)
[2017-07-11] MEDS: MULTIVIT/CA CARB/B CMPLX/FA TAB PO (08:45)
[2017-07-11] MEDS: LOSARTAN 25 MG TAB PO (08:45)
[2017-07-11] MEDS: DOCUSATE SODIUM 100 MG CAP PO ×2 (08:45→20:32)
[2017-07-11] MEDS: SEVELAMER 800 MG TAB PO ×3 (08:45→17:13)
[2017-07-11] MEDS: ASPIRIN (EC) 81 MG TAB PO (08:45)
[2017-07-11] MEDS: SILVER SULFADIAZINE 1% 400 GM CR TOP (09:00)
[2017-07-11] MEDS: SODIUM HYPOCHLORITE 1/40% 1L IRRIG IRR ×2 (09:00→20:34)
[2017-07-11] MEDS: ACETAMINOPHEN 325 MG TAB PO (09:44)
[2017-07-11] MEDS: SOD FERRIC GLUC COMPLX 125 MG in SOD CHLORIDE 0.9% 100 ML IVPB (11:36)
[2017-07-11] MEDS: LEVOFLOXACIN 250 MG TAB PO (12:40)
[2017-07-11] MEDS: EPOETIN 10000 UNITS/1 ML INJ (ESRD) SC (18:19)
[2017-07-11] MEDS: LACTOBACILLUS RHAMNOSUS CAP PO (20:32)
[2017-07-11] MEDS: INSULIN GLARGINE [LANtus] 3 ML PEN SC (20:32)
[2017-07-11] MEDS: ATORVASTATIN 10 MG TAB PO (20:33)
[2017-07-12] MEDS: ACCU-CHEK XX (02:15)
[2017-07-12 06:29] LABS: ADD MAN DIFF? NO
[2017-07-12 06:39] LABS: BASOPHILS % 0.4 % (0.0-2.0); EOSINOPHILS # 0.3 10^3/ul (0.0-0.5); EOSINOPHILS % 3.5 % (0.0-7.0); HEMATOCRIT 24.3 % (42.0-52.0); LYMPHOCYTES # 0.8 10^3/ul (0.8-2.9); LYMPHOCYTES % 8.4 % (15.0-51.0); MEAN CORPUSCULAR HEMOGLOBIN 31.7 pg (29.0-33.0); MEAN CORPUSCULAR HGB CONC 32.9 g/dl (32.0-37.0); MEAN CORPUSCULAR VOLUME 96.4 fl (82.0-101.0); MEAN PLATELET VOLUME 11.1 fl (7.4-10.4); MONOCYTE # 1.2 10^3/ul (0.3-0.9); MONOCYTES % 12.4 % (0.0-11.0); NEUTROPHIL # 7.1 10^3/ul (1.6-7.5); PLATELET COUNT 307 10^3/UL (140-415); RED BLOOD COUNT 2.52 10^6/ul (4.70-6.10); RED CELL DISTRIBUTION WIDTH 13.2 % (11.5-14.5)
[2017-07-12 06:39] LABS: WHITE BLOOD COUNT 9.6 10^3/ul (4.8-10.8)
[2017-07-12 07:27] LABS: ALANINE AMINOTRANSFERASE 35 IU/L (13-69); ALBUMIN 3.3 g/dl (3.3-4.9); ALBUMIN/GLOBULIN RATIO 0.89; ALKALINE PHOSPHATASE 123 IU/L (42-121); ANION GAP 19 (8-16); ASPARTATE AMINO TRANSFERASE 29 IU/L (15-46); BLOOD UREA NITROGEN 72 mg/dl (7-20); CARBON DIOXIDE 27 mmol/L (21-31); CHLORIDE 91 mmol/L (97-110); GLUCOSE 150 mg/dl (70-220); MAGNESIUM 2.7 mg/dl (1.7-2.5); PHOSPHORUS 7.2 mg/dl (2.5-4.9); POTASSIUM 5.1 mmol/L (3.5-5.1); SODIUM 132 mmol/L (135-144)
[2017-07-12] MEDS: INSULIN ASPART [NOVOLOG] 3 ML PEN SC ×7 (07:56→21:00)
[2017-07-12] MEDS: SEVELAMER 800 MG TAB PO ×3 (08:27→17:24)
[2017-07-12] MEDS: SENNA TAB PO ×2 (08:28→21:58)
[2017-07-12] MEDS: LACTOBACILLUS RHAMNOSUS CAP PO ×2 (08:28→21:58)
[2017-07-12] MEDS: CALCIUM ACETATE 667 MG CAP PO ×3 (08:28→17:34)
[2017-07-12] MEDS: DOCUSATE SODIUM 100 MG CAP PO ×2 (08:28→21:58)
[2017-07-12] MEDS: ASPIRIN (EC) 81 MG TAB PO (08:28)
[2017-07-12] MEDS: LOSARTAN 25 MG TAB PO (08:28)
[2017-07-12] MEDS: MULTIVIT/CA CARB/B CMPLX/FA TAB PO (08:28)
[2017-07-12] MEDS: ENOXAPARIN 30 MG/0.3 ML SYG SC (08:32)
[2017-07-12] MEDS: SODIUM HYPOCHLORITE 1/40% 1L IRRIG IRR ×2 (08:36→21:00)
[2017-07-12] MEDS: morphine 2 MG INJ IV (08:36)
[2017-07-12] MEDS: SILVER SULFADIAZINE 1% 400 GM CR TOP (08:36)
[2017-07-12] MEDS: FAMOTIDINE 20 MG TAB PO (21:58)
[2017-07-12] MEDS: ATORVASTATIN 10 MG TAB PO (21:59)
[2017-07-12] MEDS: INSULIN GLARGINE [LANtus] 3 ML PEN SC (22:05)
[2017-07-13] MEDS: ACCU-CHEK XX (02:00)
[2017-07-13 06:29] LABS: ADD MAN DIFF? NO
[2017-07-13 06:32] LABS: WHITE BLOOD COUNT 9.2 10^3/ul (4.8-10.8)
[2017-07-13 06:32] LABS: BASOPHILS % 0.4 % (0.0-2.0); EOSINOPHILS # 0.2 10^3/ul (0.0-0.5); EOSINOPHILS % 2.1 % (0.0-7.0); HEMOGLOBIN 8.2 g/dl (14.0-18.0); LYMPHOCYTES # 1.1 10^3/ul (0.8-2.9); LYMPHOCYTES % 12.3 % (15.0-51.0); MEAN CORPUSCULAR HEMOGLOBIN 31.9 pg (29.0-33.0); MEAN CORPUSCULAR HGB CONC 32.8 g/dl (32.0-37.0); MEAN CORPUSCULAR VOLUME 97.3 fl (82.0-101.0); MONOCYTE # 1.3 10^3/ul (0.3-0.9); MONOCYTES % 14.6 % (0.0-11.0); NEUTROPHIL # 6.4 10^3/ul (1.6-7.5); NEUTROPHILS % 69.7 % (39.0-77.0); PLATELET COUNT 313 10^3/UL (140-415); RED BLOOD COUNT 2.57 10^6/ul (4.70-6.10); RED CELL DISTRIBUTION WIDTH 13.3 % (11.5-14.5)
[2017-07-13 07:00] LABS: ANION GAP 23 (8-16); BLOOD UREA NITROGEN 94 mg/dl (7-20); CALCIUM 7.9 mg/dl (8.4-10.2); CARBON DIOXIDE 24 mmol/L (21-31); CHLORIDE 90 mmol/L (97-110); CREATININE 12.88 mg/dl (0.61-1.24); GLUCOSE 111 mg/dl (70-220); PHOSPHORUS 8.7 mg/dl (2.5-4.9); SODIUM 131 mmol/L (135-144)
[2017-07-13] MEDS: morphine 2 MG INJ IV ×2 (07:58→14:47)
[2017-07-13] MEDS: INSULIN ASPART [NOVOLOG] 3 ML PEN SC ×7 (08:00→20:43)
[2017-07-13] MEDS: ENOXAPARIN 30 MG/0.3 ML SYG SC (08:44)
[2017-07-13] MEDS: SEVELAMER 800 MG TAB PO ×3 (08:46→17:34)
[2017-07-13] MEDS: DOCUSATE SODIUM 100 MG CAP PO ×2 (08:46→20:42)
[2017-07-13] MEDS: SENNA TAB PO ×2 (08:46→20:42)
[2017-07-13] MEDS: CALCIUM ACETATE 667 MG CAP PO ×3 (08:46→17:30)
[2017-07-13] MEDS: LACTOBACILLUS RHAMNOSUS CAP PO ×2 (08:46→20:42)
[2017-07-13] MEDS: MULTIVIT/CA CARB/B CMPLX/FA TAB PO (08:46)
[2017-07-13] MEDS: ASPIRIN (EC) 81 MG TAB PO (08:46)
[2017-07-13] MEDS: SODIUM HYPOCHLORITE 1/40% 1L IRRIG IRR ×2 (08:47→20:42)
[2017-07-13] MEDS: LOSARTAN 25 MG TAB PO (08:47)
[2017-07-13] MEDS: SILVER SULFADIAZINE 1% 400 GM CR TOP (08:47)
[2017-07-13] MEDS: LEVOFLOXACIN 250 MG TAB PO (12:36)
[2017-07-13] MEDS: EPOETIN 10000 UNITS/1 ML INJ (ESRD) SC (17:30)
[2017-07-13] MEDS: VANCOMYCIN 1 GM 250 ML IVPB (18:17)
[2017-07-13] MEDS: ATORVASTATIN 10 MG TAB PO (20:42)
[2017-07-13] MEDS: FAMOTIDINE 20 MG TAB PO (20:43)
[2017-07-13] MEDS: INSULIN GLARGINE [LANtus] 3 ML PEN SC (20:45)
[2017-07-13] MEDS: COLLAGENASE 30 GM TUBE TOP (22:50)
[2017-07-13] MEDS ORDERED: COLLAGENASE 30 GM TUBE TOP (23:00)
[2017-07-14] MEDS: morphine 2 MG INJ IV (01:51)
[2017-07-14] MEDS: ACCU-CHEK XX (01:53)
[2017-07-14 06:23] LABS: ADD MAN DIFF? NO
[2017-07-14 06:27] LABS: WHITE BLOOD COUNT 8.4 10^3/ul (4.8-10.8)
[2017-07-14 06:27] LABS: BASOPHILS % 0.5 % (0.0-2.0); EOSINOPHILS # 0.2 10^3/ul (0.0-0.5); HEMATOCRIT 23.9 % (42.0-52.0); HEMOGLOBIN 7.8 g/dl (14.0-18.0); LYMPHOCYTES # 1.4 10^3/ul (0.8-2.9); LYMPHOCYTES % 16.4 % (15.0-51.0); MEAN CORPUSCULAR HEMOGLOBIN 31.7 pg (29.0-33.0); MEAN CORPUSCULAR HGB CONC 32.6 g/dl (32.0-37.0); MEAN CORPUSCULAR VOLUME 97.2 fl (82.0-101.0); MEAN PLATELET VOLUME 10.9 fl (7.4-10.4); MONOCYTE # 1.3 10^3/ul (0.3-0.9); NEUTROPHIL # 5.5 10^3/ul (1.6-7.5); NEUTROPHILS % 65.3 % (39.0-77.0); PLATELET COUNT 308 10^3/UL (140-415); RED BLOOD COUNT 2.46 10^6/ul (4.70-6.10); RED CELL DISTRIBUTION WIDTH 13.2 % (11.5-14.5)
[2017-07-14 07:05] LABS: ANION GAP 21 (8-16); BLOOD UREA NITROGEN 81 mg/dl (7-20); CALCIUM 8.2 mg/dl (8.4-10.2); CARBON DIOXIDE 26 mmol/L (21-31); CHLORIDE 92 mmol/L (97-110); CREATININE 10.96 mg/dl (0.61-1.24); GLUCOSE 106 mg/dl (70-220); MAGNESIUM 2.9 mg/dl (1.7-2.5); PHOSPHORUS 8.1 mg/dl (2.5-4.9); POTASSIUM 5.4 mmol/L (3.5-5.1); SODIUM 134 mmol/L (135-144)
[2017-07-14] MEDS: INSULIN ASPART [NOVOLOG] 3 ML PEN SC ×7 (08:00→21:00)
[2017-07-14] MEDS: LOSARTAN 25 MG TAB PO (09:00)
[2017-07-14] MEDS: ENOXAPARIN 30 MG/0.3 ML SYG SC (09:01)
[2017-07-14] MEDS: CALCIUM ACETATE 667 MG CAP PO ×3 (09:02→18:48)
[2017-07-14] MEDS: SEVELAMER 800 MG TAB PO ×3 (09:02→18:48)
[2017-07-14] MEDS: SODIUM HYPOCHLORITE 1/40% 1L IRRIG IRR ×2 (09:03→20:59)
[2017-07-14] MEDS: DOCUSATE SODIUM 100 MG CAP PO ×2 (09:03→21:00)
[2017-07-14] MEDS: SENNA TAB PO ×2 (09:04→21:00)
[2017-07-14] MEDS: ASPIRIN (EC) 81 MG TAB PO (09:04)
[2017-07-14] MEDS: LACTOBACILLUS RHAMNOSUS CAP PO ×2 (09:04→21:01)
[2017-07-14] MEDS: MULTIVIT/CA CARB/B CMPLX/FA TAB PO (09:04)
[2017-07-14] MEDS: SILVER SULFADIAZINE 1% 400 GM CR TOP (09:06)
[2017-07-14] MEDS: ATORVASTATIN 10 MG TAB PO (20:59)
[2017-07-14] MEDS: FAMOTIDINE 20 MG TAB PO (21:00)
[2017-07-14] MEDS: INSULIN GLARGINE [LANtus] 3 ML PEN SC (21:03)
[2017-07-14] MEDS: COLLAGENASE 30 GM TUBE TOP (21:03)
[2017-07-15] MEDS: ACCU-CHEK XX (02:00)
[2017-07-15 06:21] LABS: ADD MAN DIFF? NO
[2017-07-15 06:35] LABS: BASOPHILS % 0.3 % (0.0-2.0); EOSINOPHILS # 0.2 10^3/ul (0.0-0.5); EOSINOPHILS % 1.8 % (0.0-7.0); HEMATOCRIT 26.6 % (42.0-52.0); HEMOGLOBIN 8.4 g/dl (14.0-18.0); LYMPHOCYTES # 1.6 10^3/ul (0.8-2.9); LYMPHOCYTES % 17.6 % (15.0-51.0); MEAN CORPUSCULAR HEMOGLOBIN 31.3 pg (29.0-33.0); MEAN CORPUSCULAR HGB CONC 31.6 g/dl (32.0-37.0); MEAN CORPUSCULAR VOLUME 99.3 fl (82.0-101.0); MEAN PLATELET VOLUME 10.8 fl (7.4-10.4); MONOCYTE # 1.2 10^3/ul (0.3-0.9); MONOCYTES % 13.2 % (0.0-11.0); NEUTROPHIL # 6.1 10^3/ul (1.6-7.5); NEUTROPHILS % 65.8 % (39.0-77.0); PLATELET COUNT 336 10^3/UL (140-415); RED BLOOD COUNT 2.68 10^6/ul (4.70-6.10); RED CELL DISTRIBUTION WIDTH 13.2 % (11.5-14.5)
[2017-07-15 06:35] LABS: WHITE BLOOD COUNT 9.3 10^3/ul (4.8-10.8)
[2017-07-15 07:10] LABS: ANION GAP 24 (8-16); BLOOD UREA NITROGEN 66 mg/dl (7-20); CALCIUM 8.7 mg/dl (8.4-10.2); CARBON DIOXIDE 26 mmol/L (21-31); CHLORIDE 98 mmol/L (97-110); CREATININE 10.11 mg/dl (0.61-1.24); GLUCOSE 79 mg/dl (70-220); MAGNESIUM 2.9 mg/dl (1.7-2.5); POTASSIUM 5.2 mmol/L (3.5-5.1); SODIUM 143 mmol/L (135-144)
[2017-07-15] MEDS: INSULIN ASPART [NOVOLOG] 3 ML PEN SC ×7 (07:35→20:42)
[2017-07-15] MEDS: SENNA TAB PO ×2 (08:43→20:37)
[2017-07-15] MEDS: CALCIUM ACETATE 667 MG CAP PO ×3 (08:43→17:46)
[2017-07-15] MEDS: DOCUSATE SODIUM 100 MG CAP PO ×2 (08:43→20:38)
[2017-07-15] MEDS: LACTOBACILLUS RHAMNOSUS CAP PO ×2 (08:43→20:37)
[2017-07-15] MEDS: MULTIVIT/CA CARB/B CMPLX/FA TAB PO (08:43)
[2017-07-15] MEDS: SEVELAMER 800 MG TAB PO ×3 (08:44→17:46)
[2017-07-15] MEDS: ENOXAPARIN 30 MG/0.3 ML SYG SC (08:48)
[2017-07-15] MEDS: SODIUM HYPOCHLORITE 1/40% 1L IRRIG IRR ×2 (08:48→20:38)
[2017-07-15] MEDS: LOSARTAN 25 MG TAB PO (08:49)
[2017-07-15] MEDS: ASPIRIN (EC) 81 MG TAB PO (08:50)
[2017-07-15] MEDS: SILVER SULFADIAZINE 1% 400 GM CR TOP (08:51)
[2017-07-15] MEDS: LEVOFLOXACIN 250 MG TAB PO (12:33)
[2017-07-15] MEDS: morphine 2 MG INJ IV (16:05)
[2017-07-15] MEDS: EPOETIN 10000 UNITS/1 ML INJ (ESRD) SC (17:47)
[2017-07-15] MEDS: ATORVASTATIN 10 MG TAB PO (20:37)
[2017-07-15] MEDS: FAMOTIDINE 20 MG TAB PO (20:37)
[2017-07-15] MEDS: COLLAGENASE 30 GM TUBE TOP (20:39)
[2017-07-15] MEDS: INSULIN GLARGINE [LANtus] 3 ML PEN SC (20:44)
[2017-07-16] MEDS: ACCU-CHEK XX (02:00)
[2017-07-16] MEDS: ONDANSETRON 4 MG INJ IV (02:14)
[2017-07-16] MEDS: MAGNESIUM HYDROXIDE 30ML CUP PO (02:21)
[2017-07-16 05:21] LABS: ADD MAN DIFF? NO
[2017-07-16 05:23] LABS: BASOPHILS % 0.2 % (0.0-2.0); EOSINOPHILS # 0.2 10^3/ul (0.0-0.5); EOSINOPHILS % 1.9 % (0.0-7.0); HEMATOCRIT 26.9 % (42.0-52.0); HEMOGLOBIN 8.6 g/dl (14.0-18.0); LYMPHOCYTES # 1.5 10^3/ul (0.8-2.9); LYMPHOCYTES % 15.1 % (15.0-51.0); MEAN CORPUSCULAR HEMOGLOBIN 31.3 pg (29.0-33.0); MEAN CORPUSCULAR VOLUME 97.8 fl (82.0-101.0); MONOCYTE # 1.2 10^3/ul (0.3-0.9); MONOCYTES % 11.4 % (0.0-11.0); NEUTROPHIL # 7.2 10^3/ul (1.6-7.5); NEUTROPHILS % 70.2 % (39.0-77.0); PLATELET COUNT 327 10^3/UL (140-415); RED BLOOD COUNT 2.75 10^6/ul (4.70-6.10); RED CELL DISTRIBUTION WIDTH 13.2 % (11.5-14.5)
[2017-07-16 05:23] LABS: WHITE BLOOD COUNT 10.2 10^3/ul (4.8-10.8)
[2017-07-16 05:45] LABS: ANION GAP 21 (8-16); BLOOD UREA NITROGEN 59 mg/dl (7-20); CALCIUM 8.3 mg/dl (8.4-10.2); CARBON DIOXIDE 29 mmol/L (21-31); CHLORIDE 96 mmol/L (97-110); CREATININE 9.18 mg/dl (0.61-1.24); GLUCOSE 164 mg/dl (70-220); POTASSIUM 4.6 mmol/L (3.5-5.1); SODIUM 141 mmol/L (135-144)
[2017-07-16 05:48] LABS: VANCOMYCIN,RANDOM 16.2 ug/ml
[2017-07-16] MEDS: MULTIVIT/CA CARB/B CMPLX/FA TAB PO (08:34)
[2017-07-16] MEDS: LACTOBACILLUS RHAMNOSUS CAP PO ×2 (08:34→20:24)
[2017-07-16] MEDS: DOCUSATE SODIUM 100 MG CAP PO ×2 (08:34→20:24)
[2017-07-16] MEDS: CALCIUM ACETATE 667 MG CAP PO ×3 (08:34→16:42)
[2017-07-16] MEDS: SEVELAMER 800 MG TAB PO ×3 (08:34→16:42)
[2017-07-16] MEDS: SENNA TAB PO ×2 (08:34→20:24)
[2017-07-16] MEDS: ASPIRIN (EC) 81 MG TAB PO (08:34)
[2017-07-16] MEDS: INSULIN ASPART [NOVOLOG] 3 ML PEN SC ×7 (08:37→20:23)
[2017-07-16] MEDS: ENOXAPARIN 30 MG/0.3 ML SYG SC (08:40)
[2017-07-16] MEDS: LOSARTAN 25 MG TAB PO (09:00)
[2017-07-16] MEDS: SILVER SULFADIAZINE 1% 400 GM CR TOP (12:00)
[2017-07-16] MEDS: SODIUM HYPOCHLORITE 1/40% 1L IRRIG IRR ×2 (12:00→20:30)
[2017-07-16] MEDS: ATORVASTATIN 10 MG TAB PO (20:24)
[2017-07-16] MEDS: FAMOTIDINE 20 MG TAB PO (20:24)
[2017-07-16] MEDS: INSULIN GLARGINE [LANtus] 3 ML PEN SC (20:29)
[2017-07-16] MEDS: COLLAGENASE 30 GM TUBE TOP (20:30)
[2017-07-17] MEDS: ACCU-CHEK XX (02:00)
[2017-07-17 05:34] LABS: ADD MAN DIFF? NO
[2017-07-17 05:39] LABS: BASOPHILS % 0.4 % (0.0-2.0); EOSINOPHILS # 0.3 10^3/ul (0.0-0.5); EOSINOPHILS % 2.6 % (0.0-7.0); HEMATOCRIT 24.5 % (42.0-52.0); LYMPHOCYTES # 1.7 10^3/ul (0.8-2.9); LYMPHOCYTES % 17.3 % (15.0-51.0); MEAN CORPUSCULAR HEMOGLOBIN 31.6 pg (29.0-33.0); MEAN CORPUSCULAR HGB CONC 32.7 g/dl (32.0-37.0); MEAN CORPUSCULAR VOLUME 96.8 fl (82.0-101.0); MEAN PLATELET VOLUME 10.4 fl (7.4-10.4); MONOCYTES % 10.5 % (0.0-11.0); NEUTROPHIL # 6.5 10^3/ul (1.6-7.5); NEUTROPHILS % 68.2 % (39.0-77.0); PLATELET COUNT 326 10^3/UL (140-415); RED BLOOD COUNT 2.53 10^6/ul (4.70-6.10)
[2017-07-17 05:39] LABS: WHITE BLOOD COUNT 9.5 10^3/ul (4.8-10.8)
[2017-07-17 06:13] LABS: ANION GAP 22 (8-16); BLOOD UREA NITROGEN 77 mg/dl (7-20); CARBON DIOXIDE 23 mmol/L (21-31); CHLORIDE 97 mmol/L (97-110); CREATININE 11.13 mg/dl (0.61-1.24); GLUCOSE 143 mg/dl (70-220); POTASSIUM 5.2 mmol/L (3.5-5.1); SODIUM 137 mmol/L (135-144)
[2017-07-17] MEDS: CALCIUM ACETATE 667 MG CAP PO ×3 (07:52→17:01)
[2017-07-17] MEDS: DOCUSATE SODIUM 100 MG CAP PO ×2 (07:52→20:39)
[2017-07-17] MEDS: SEVELAMER 800 MG TAB PO ×3 (07:52→17:00)
[2017-07-17] MEDS: ASPIRIN (EC) 81 MG TAB PO (07:52)
[2017-07-17] MEDS: LACTOBACILLUS RHAMNOSUS CAP PO ×2 (07:52→20:39)
[2017-07-17] MEDS: SENNA TAB PO ×2 (07:53→20:39)
[2017-07-17] MEDS: MULTIVIT/CA CARB/B CMPLX/FA TAB PO (07:53)
[2017-07-17] MEDS: ENOXAPARIN 30 MG/0.3 ML SYG SC (07:54)
[2017-07-17] MEDS: INSULIN ASPART [NOVOLOG] 3 ML PEN SC ×7 (07:55→20:38)
[2017-07-17] MEDS: SILVER SULFADIAZINE 1% 400 GM CR TOP (09:00)
[2017-07-17] MEDS: LOSARTAN 25 MG TAB PO (09:00)
[2017-07-17] MEDS: SODIUM HYPOCHLORITE 1/40% 1L IRRIG IRR ×2 (09:00→20:41)
[2017-07-17] MEDS: LEVOFLOXACIN 250 MG TAB PO (11:56)
[2017-07-17] MEDS: VANCOMYCIN 1 GM 250 ML IVPB (17:02)
[2017-07-17] MEDS: ATORVASTATIN 10 MG TAB PO (20:40)
[2017-07-17] MEDS: FAMOTIDINE 20 MG TAB PO (20:40)
[2017-07-17] MEDS: INSULIN GLARGINE [LANtus] 3 ML PEN SC (20:46)
[2017-07-17] MEDS: COLLAGENASE 30 GM TUBE TOP (22:43)
[2017-07-18] MEDS: ACCU-CHEK XX (02:00)
[2017-07-18 06:43] LABS: ADD MAN DIFF? NO
[2017-07-18 06:50] LABS: BASOPHIL # 0.1 10^3/ul (0.0-0.1); BASOPHILS % 0.6 % (0.0-2.0); EOSINOPHILS # 0.3 10^3/ul (0.0-0.5); EOSINOPHILS % 3.3 % (0.0-7.0); HEMOGLOBIN 8.7 g/dl (14.0-18.0); LYMPHOCYTES # 1.4 10^3/ul (0.8-2.9); LYMPHOCYTES % 15.9 % (15.0-51.0); MEAN CORPUSCULAR HEMOGLOBIN 31.1 pg (29.0-33.0); MEAN CORPUSCULAR HGB CONC 32.2 g/dl (32.0-37.0); MEAN CORPUSCULAR VOLUME 96.4 fl (82.0-101.0); MEAN PLATELET VOLUME 10.4 fl (7.4-10.4); MONOCYTE # 0.9 10^3/ul (0.3-0.9); NEUTROPHIL # 5.9 10^3/ul (1.6-7.5); PLATELET COUNT 324 10^3/UL (140-415); RED CELL DISTRIBUTION WIDTH 12.8 % (11.5-14.5)
[2017-07-18 06:50] LABS: WHITE BLOOD COUNT 8.6 10^3/ul (4.8-10.8)
[2017-07-18 07:19] LABS: ANION GAP 20 (8-16); BLOOD UREA NITROGEN 60 mg/dl (7-20); CALCIUM 8.1 mg/dl (8.4-10.2); CARBON DIOXIDE 26 mmol/L (21-31); CHLORIDE 94 mmol/L (97-110); CREATININE 9.25 mg/dl (0.61-1.24); GLUCOSE 195 mg/dl (70-220); POTASSIUM 4.6 mmol/L (3.5-5.1); SODIUM 135 mmol/L (135-144)
[2017-07-18] MEDS: CALCIUM ACETATE 667 MG CAP PO ×3 (08:59→17:37)
[2017-07-18] MEDS: SEVELAMER 800 MG TAB PO ×3 (08:59→17:34)
[2017-07-18] MEDS: INSULIN ASPART [NOVOLOG] 3 ML PEN SC ×7 (09:03→21:00)
[2017-07-18] MEDS: ENOXAPARIN 30 MG/0.3 ML SYG SC (09:04)
[2017-07-18] MEDS: DOCUSATE SODIUM 100 MG CAP PO ×2 (09:05→21:56)
[2017-07-18] MEDS: MULTIVIT/CA CARB/B CMPLX/FA TAB PO (09:05)
[2017-07-18] MEDS: ASPIRIN (EC) 81 MG TAB PO (09:05)
[2017-07-18] MEDS: LACTOBACILLUS RHAMNOSUS CAP PO ×2 (09:05→21:55)
[2017-07-18] MEDS: SODIUM HYPOCHLORITE 1/40% 1L IRRIG IRR ×2 (09:06→21:52)
[2017-07-18] MEDS: SENNA TAB PO ×2 (09:06→22:01)
[2017-07-18] MEDS: SILVER SULFADIAZINE 1% 400 GM CR TOP (09:07)
[2017-07-18] MEDS: LOSARTAN 25 MG TAB PO (09:43)
[2017-07-18] MEDS: EPOETIN 10000 UNITS/1 ML INJ (ESRD) SC (17:34)
[2017-07-18] MEDS: COLLAGENASE 30 GM TUBE TOP (21:52)
[2017-07-18] MEDS: FAMOTIDINE 20 MG TAB PO (21:53)
[2017-07-18] MEDS: ATORVASTATIN 10 MG TAB PO (21:55)
[2017-07-18] MEDS: INSULIN GLARGINE [LANtus] 3 ML PEN SC (22:00)
[2017-07-19] MEDS: ACCU-CHEK XX (01:56)
[2017-07-19] MEDS: morphine 2 MG INJ IV (06:17)
[2017-07-19 08:12] LABS: ADD MAN DIFF? NO
[2017-07-19 08:18] LABS: BASOPHILS % 0.4 % (0.0-2.0); EOSINOPHILS # 0.3 10^3/ul (0.0-0.5); HEMATOCRIT 25.4 % (42.0-52.0); HEMOGLOBIN 8.3 g/dl (14.0-18.0); LYMPHOCYTES # 1.6 10^3/ul (0.8-2.9); LYMPHOCYTES % 17.1 % (15.0-51.0); MEAN CORPUSCULAR HGB CONC 32.7 g/dl (32.0-37.0); MEAN CORPUSCULAR VOLUME 94.8 fl (82.0-101.0); MEAN PLATELET VOLUME 10.5 fl (7.4-10.4); MONOCYTE # 0.9 10^3/ul (0.3-0.9); MONOCYTES % 9.9 % (0.0-11.0); NEUTROPHIL # 6.2 10^3/ul (1.6-7.5); NEUTROPHILS % 68.3 % (39.0-77.0); PLATELET COUNT 300 10^3/UL (140-415); RED BLOOD COUNT 2.68 10^6/ul (4.70-6.10)
[2017-07-19 08:18] LABS: WHITE BLOOD COUNT 9.1 10^3/ul (4.8-10.8)
[2017-07-19] MEDS: LACTOBACILLUS RHAMNOSUS CAP PO (08:42)
[2017-07-19] MEDS: SENNA TAB PO (08:42)
[2017-07-19] MEDS: SEVELAMER 800 MG TAB PO ×3 (08:42→18:05)
[2017-07-19] MEDS: CALCIUM ACETATE 667 MG CAP PO ×3 (08:42→17:45)
[2017-07-19] MEDS: MULTIVIT/CA CARB/B CMPLX/FA TAB PO (08:42)
[2017-07-19] MEDS: ASPIRIN (EC) 81 MG TAB PO (08:42)
[2017-07-19] MEDS: DOCUSATE SODIUM 100 MG CAP PO (08:43)
[2017-07-19] MEDS: LOSARTAN 25 MG TAB PO (08:46)
[2017-07-19] MEDS: INSULIN ASPART [NOVOLOG] 3 ML PEN SC ×6 (08:47→17:44)
[2017-07-19] MEDS: ENOXAPARIN 30 MG/0.3 ML SYG SC (08:49)
[2017-07-19 08:52] LABS: ANION GAP 22 (8-16); BLOOD UREA NITROGEN 81 mg/dl (7-20); CALCIUM 8.2 mg/dl (8.4-10.2); CARBON DIOXIDE 24 mmol/L (21-31); CHLORIDE 94 mmol/L (97-110); CREATININE 11.49 mg/dl (0.61-1.24); GLUCOSE 145 mg/dl (70-220); POTASSIUM 5.2 mmol/L (3.5-5.1); SODIUM 135 mmol/L (135-144)
[2017-07-19] MEDS: SILVER SULFADIAZINE 1% 400 GM CR TOP ×2 (09:00→15:00)
[2017-07-19] MEDS: LEVOFLOXACIN 250 MG TAB PO (12:18)
[2017-07-19] MEDS: SODIUM HYPOCHLORITE 1/40% 1L IRRIG IRR ×2 (13:27→15:00)
[2017-07-19] MEDS: ACETAMINOPHEN 325 MG TAB PO (19:55)
== END 2017-07-19 19:56 | disposition home health service (06) | DRG 299 ==
LOC: MS4 06-30 00:19 → PP2 06-30 03:51 → E/R 18:23 → PP2 07-01 00:05
PROC: 5A1D70Z Performance of Urinary Filtration, Intermittent, Less than 6 Hours Per Day (ICD-10-PCS; principal; 2017-07-04 18:53)
PROC: 5A1D70Z Performance of Urinary Filtration, Intermittent, Less than 6 Hours Per Day (ICD-10-PCS; 2017-07-04 18:53)
PROC: 5A1D70Z Performance of Urinary Filtration, Intermittent, Less than 6 Hours Per Day (ICD-10-PCS; 2017-07-04 18:53)
PROC: 5A1D70Z Performance of Urinary Filtration, Intermittent, Less than 6 Hours Per Day (ICD-10-PCS; 2017-07-04 18:53)
PROC: 5A1D70Z Performance of Urinary Filtration, Intermittent, Less than 6 Hours Per Day (ICD-10-PCS; 2017-07-04 18:53)
PROC: 5A1D70Z Performance of Urinary Filtration, Intermittent, Less than 6 Hours Per Day (ICD-10-PCS; 2017-07-04 18:53)
PROC: 5A1D70Z Performance of Urinary Filtration, Intermittent, Less than 6 Hours Per Day (ICD-10-PCS; 2017-07-04 18:53)
PROC: 5A1D70Z Performance of Urinary Filtration, Intermittent, Less than 6 Hours Per Day (ICD-10-PCS; 2017-07-04 18:53)
PROC: 5A1D70Z Performance of Urinary Filtration, Intermittent, Less than 6 Hours Per Day (ICD-10-PCS; 2017-07-04 18:53)
PROC: 5A1D70Z Performance of Urinary Filtration, Intermittent, Less than 6 Hours Per Day (ICD-10-PCS; 2017-07-04 18:53)
PROC: 5A1D70Z Performance of Urinary Filtration, Intermittent, Less than 6 Hours Per Day (ICD-10-PCS; 2017-07-04 18:53)
PROC: 5A1D70Z Performance of Urinary Filtration, Intermittent, Less than 6 Hours Per Day (ICD-10-PCS; 2017-07-04 18:53)
PROC: 30233N1 Transfusion of Nonautologous Red Blood Cells into Peripheral Vein, Percutaneous Approach (ICD-10-PCS; 2017-07-04 18:53)
DX: E11.52 Type 2 diabetes mellitus with diabetic peripheral angiopathy with gangrene (principal); N18.6 End stage renal disease; A41.9 Sepsis, unspecified organism; I96 Gangrene, not elsewhere classified; E11.22 Type 2 diabetes mellitus with diabetic chronic kidney disease; I12.0 Hypertensive chronic kidney disease with stage 5 chronic kidney disease or end stage renal disease; E87.1 Hypo-osmolality and hyponatremia; Z99.2 Dependence on renal dialysis; I25.10 Atherosclerotic heart disease of native coronary artery without angina pectoris; E87.6 Hypokalemia; H54.8 Legal blindness, as defined in USA; E11.621 Type 2 diabetes mellitus with foot ulcer; L97.519 Non-pressure chronic ulcer of other part of right foot with unspecified severity; E66.9 Obesity, unspecified; Z68.34 Body mass index [BMI] 34.0-34.9, adult; H91.90 Unspecified hearing loss, unspecified ear; D63.1 Anemia in chronic kidney disease; B96.5 Pseudomonas (aeruginosa) (mallei) (pseudomallei) as the cause of diseases classified elsewhere; B95.2 Enterococcus as the cause of diseases classified elsewhere; B96.89 Other specified bacterial agents as the cause of diseases classified elsewhere; E87.5 Hyperkalemia; E11.42 Type 2 diabetes mellitus with diabetic polyneuropathy; I25.5 Ischemic cardiomyopathy; E78.5 Hyperlipidemia, unspecified; I35.0 Nonrheumatic aortic (valve) stenosis; I65.21 Occlusion and stenosis of right carotid artery; Z95.1 Presence of aortocoronary bypass graft; Z86.73 Personal history of transient ischemic attack (TIA), and cerebral infarction without residual deficits
CPT/HCPCS: 36415; 36430; 71010; 73630; 73718; 80048; 80053; 80061; 80170; 80202; 82728; 82962; 83036; 83540; 83605; 83735; 84100; 84443; 85014; 85018; 85025; 85610; 85651; 85730; 86850; 86900; 86901; 86920; 87040; 87070; 87075; 87081; 87102; 88304; 90686; 90935; 93005; 93306; 94664; 96372; 96374; 96375; 97162; 97166; 97535; 99285-25